=== PATIENT | female | born 1945 | race Caucasian/White ===

== ENCOUNTER 2017-07-26 06:00 | Day surgery (SDC) | payer OTHER ==
[~2017-07-26] VITALS: Ht 162.6 cm; Wt 79.4 kg
[~2017-07-26 06:00] MED LIST: CARVEDILOL12.5 MG PO; GLIMEPIRIDE4 MG PO; JANUVIA100 MG PO; LANTUS; LOSARTAN-HCTZ1 EAC2 PO; METFORMIN HCL500 M2 PO; ZOCOR20 MG PO
== END 2017-07-26 13:00 | disposition home or self-care (01) ==
LOC: OB/GYN 06:00 → O/R 06:00 → CIR.AMB 06:00 → OB/GYN 09:15 → EDSTATUS 09:15 → OB/GYN 12:45 → CIR.AMB 13:00 → O/R 13:50
DX: D27.1 Benign neoplasm of left ovary (principal); N83.291 Other ovarian cyst, right side; N73.6 Female pelvic peritoneal adhesions (postinfective)